=== PATIENT | female | born 1950 | race Caucasian/White ===

== ENCOUNTER 2016-10-16 11:27 | Emergency (ER) | payer MEDICARE ==
[~2016-10-16] VITALS: Ht 167.6 cm; Wt 120.0 kg
[~2016-10-16 11:27] MED LIST: ASA/BUT/CAFF OR; ECOTRIN325 MG PO; FISH OIL1000 M1 PO; FLEXERIL PO; FLUOXETINE20 M2 OR; KEFLEX500 M1 PO; LANTUS; LANTUS100 MG/ML SC; LASIX 20 MG TAB20 MG PO; LASIX20 MG PO; LISINOPRIL20 M1 PO; LORTAB 5 OR; LORTAB 7.5 OR; LORTAB5 OR; METFORMIN1000 MG PO; MICARDIS80 MG OR; NEURONTIN100 MG PO; NORCO1 TA1 PO; PRAVASTATIN40 MG PO; PROZAC20 MG PO; PROZAC40 MG PO; SIMVASTATIN40 MG OR; TRAMADOL HCL50 MG PO; ULTRAM50 M1 PO; VENLAFAXINE HCL75 M1; VENLAFAXINE HCL75 M1 PO; VICOPROFEN OR; XANAX0.5 MG PO; XANAX1 MG PO; ZOFRAN ODT4 MG SL
[2016-10-16 12:11] LABS: HEMATOCRIT 28.5 % (37.0-47.0); HEMOGLOBIN 9.3 g/dl (12.0-16.0); IMMATURE GRANULOCYTES 0.3 % (0.0-1.0); MEAN CELL VOLUME 82.6 fL CALC (80.0-100.0); MEAN CORPUSCULAR HGB CONC 32.6 g/L CALC (32.0-36.0); NEUT# 3.28 thou/uL (2.00-7.15); RED BLOOD COUNT 3.45 mill/uL (4.20-5.60); RED CELL DISTRI WIDTH 13.8 % (11.5-15.5)
[2016-10-16 12:23] LABS: ALBUMIN 3.1 g/dL (3.2-5.0); ALKALINE PHOSPHATASE 83 u/l (38-126); AMYLASE 37 u/l (30-110); ANION GAP 12 (6-22 (CALC)); BILIRUBIN, TOTAL 0.4 mg/dL (0.0-1.4); BUN 19 mg/dL (8-23); BUN/CREATININE RATIO 17 (12-20 (CALC)); CALCIUM 9.3 mg/dL (8.4-10.2); CARBON DIOXIDE 24 mmol/l (22-30); CHLORIDE 108 mmol/l (95-108); CREATININE 1.2 mg/dL (0.5-1.0); GFR 45 ML/MIN (>=60 (CALC)); GFR FOR AFR.AMER. 55 ML/MIN (>=60 (CALC)); GLUCOSE 155 mg/dL (82-115); LIPASE 110 u/l (23-300); POTASSIUM 4.4 mmol/l (3.5-5.1); SGOT/AST 55 u/l (9-36); SGPT/ALT 35 u/l (11-66); SODIUM 140 mmol/l (137-146); TOTAL PROTEIN 6.5 g/dL (6.3-8.2)
[2016-10-16 12:30] LABS: ACT PARTIAL THROMBO TIME 25.9 SECONDS (20.0-32.5); INTERNATIONAL NORMALIZED RATIO 1.1 RATIO (0.7-1.3); PROTHROMBIN TIME 11.6 SECONDS (9.0-12.5)
[2016-10-16 12:35] LABS: MYOGLOBIN 121 ng/mL (0 - 62)
[2016-10-16 13:17] LABS: URINE BILIRUBIN - DIPSTICK NEGATIVE (NEGATIVE); URINE BLOOD DIPSTICK NEGATIVE (NEGATIVE); URINE CLARITY CLEAR; URINE COLOR YELLOW; URINE GLUCOSE - DIPSTICK NEGATIVE (NEGATIVE); URINE KETONE NEGATIVE (NEGATIVE); URINE LEUK ESTERASE NEGATIVE (NEGATIVE); URINE NITRITE - DIPSTICK NEGATIVE (Negative); URINE PH 5.5 (4.5-8.0); URINE PROTEIN - DIPSTICK NEGATIVE (NEG-TRACE); URINE UROBILINOGEN - DIPSTICK 0.2 E.U./dL (0.2)
[2016-10-16 16:24] VITALS: BP 131/60
== END 2016-10-16 16:25 | disposition short-term general hospital (02) ==
LOC: ED 11:27
PROVIDERS: Emergency Medicine
DX: K92.2 Gastrointestinal hemorrhage, unspecified (principal); R10.32 Left lower quadrant pain; R10.31 Right lower quadrant pain; I10 Essential (primary) hypertension

== ENCOUNTER 2017-01-27 13:12 | Emergency (ER) | payer MEDICARE ==
[~2017-01-27] VITALS: Ht 165.1 cm; Wt 103.3 kg
[~2017-01-27 13:12] MED LIST changes: +AMITRIPTYLIN50 MG PO; +ASPIRIN LOW DOS81 MG PO; +CALCIUM + D600 MG PO; +CYANOCOBAL1000 MCG/M SC; +GABAPENTIN400 M2 PO; -LASIX 20 MG TAB20 MG PO; +LASIX 40 MG40 MG/TAB PO; +LISINOPRIL10 MG PO; -LISINOPRIL20 M1 PO; +LORTAB 1010 MG PO; +MECLIZINE25 MG PO; +METHIMAZOLE10 MG PO; +NOVOLOG FLEXPEN SC; +OMEPRAZOLE20 M2 PO; +PRAVASTATIN SOD20 MG PO; -PRAVASTATIN40 MG PO; +SYMBICORT1 AE1 IN; +TRAZODONE HCL100 MG PO; +TRESIBA FL100 UNIT/M SC; +VENLAFAXINE100 MG PO; +VICTOZA18 MG/3 ML SC; +VITAMIN C500 M6 PO
[2017-01-27 13:46] LABS: HEMOGLOBIN 10.7 g/dl (12.0-16.0); IMMATURE GRANULOCYTES 0.9 % (0.0-1.0); MEAN CELL VOLUME 83.1 fL CALC (80.0-100.0); MEAN CORPUSCULAR HGB 27.8 pG CALC (26.0-32.0); MEAN CORPUSCULAR HGB CONC 33.4 g/L CALC (32.0-36.0); NEUT# 3.6 thou/uL (2.00-7.15); RED BLOOD COUNT 3.85 mill/uL (4.20-5.60); RED CELL DISTRI WIDTH 16.9 % (11.5-15.5)
[2017-01-27 14:30] LABS: ALBUMIN 3.2 g/dL (3.2-5.0); ALKALINE PHOSPHATASE 95 u/l (38-126); ANION GAP 15 (6-22 (CALC)); BILIRUBIN, TOTAL 0.4 mg/dL (0.0-1.4); BUN 15 mg/dL (8-23); BUN/CREATININE RATIO 14 (12-20 (CALC)); CALCIUM 9.2 mg/dL (8.4-10.2); CARBON DIOXIDE 23 mmol/l (22-30); CHLORIDE 112 mmol/l (95-108); CREATININE 1.1 mg/dL (0.5-1.0); GFR 50 ML/MIN (>=60 (CALC)); GFR FOR AFR.AMER. > 60 ML/MIN (>=60 (CALC)); GLUCOSE 86 mg/dL (82-115); POTASSIUM 4.5 mmol/l (3.5-5.1); SGOT/AST 35 u/l (9-36); SGPT/ALT 24 u/l (11-66); SODIUM 144 mmol/l (137-146); TOTAL PROTEIN 6.6 g/dL (6.3-8.2)
[2017-01-27 14:42] LABS: MYOGLOBIN 45 ng/mL (0 - 62)
[2017-01-27 15:48] VITALS: BP 127/58
== END 2017-01-27 15:58 | disposition home or self-care (01) ==
LOC: ED 13:12
PROVIDERS: Emergency Medicine
DX: I95.1 Orthostatic hypotension (principal); I10 Essential (primary) hypertension; E11.9 Type 2 diabetes mellitus without complications; Z79.4 Long term (current) use of insulin; Z86.73 Personal history of transient ischemic attack (TIA), and cerebral infarction without residual deficits; R42 Dizziness and giddiness; R53.1 Weakness

== ENCOUNTER 2017-02-12 10:46 | Emergency (ER) | payer MEDICARE ==
[~2017-02-12] VITALS: Ht 165.1 cm; Wt 102.0 kg
[2017-02-12 15:15] VITALS: BP 111/63
== END 2017-02-12 15:15 | disposition home or self-care (01) ==
LOC: ED 10:46
DX: S00.93XA Contusion of unspecified part of head, initial encounter (principal); S20.212A Contusion of left front wall of thorax, initial encounter; S13.9XXA Sprain of joints and ligaments of unspecified parts of neck, initial encounter; S73.102A Unspecified sprain of left hip, initial encounter; S43.402A Unspecified sprain of left shoulder joint, initial encounter; W01.198A Fall on same level from slipping, tripping and stumbling with subsequent striking against other object, initial encounter; Y92.000 Kitchen of unspecified non-institutional (private) residence as the place of occurrence of the external cause; I10 Essential (primary) hypertension

== ENCOUNTER 2017-03-26 07:08 | Day surgery (SDC) | payer MEDICARE ==
[~2017-03-26] VITALS: Ht 165.1 cm; Wt 104.8 kg
[~2017-03-26 07:08] MED LIST changes: +ALPRAZOLAM1 MG PO; +GABAPENTIN400 MG PO; +METOPROLOL SUCC25 MG PO; +NOVOLOG100 UNIT/M; +PRAVASTATIN20 MG PO; +TRESIBA FL200 UNIT/M SC; +VICODIN HP1 TA1 PO; +WELLBUTRIN SR150 MG PO
[2017-03-26] MEDS ORDERED: NORCO1 TA1 PO (11:37)
[2017-03-26 12:06] VITALS: BP 103/56
== END 2017-03-26 12:28 | disposition home or self-care (01) ==
LOC: ORM 07:08
PROVIDERS: ATTEND Surgery
PROC: 0KBG0ZZ Excision of Left Trunk Muscle, Open Approach (ICD-10-PCS; principal; 2017-03-26)
DX: M79.89 Other specified soft tissue disorders (principal)

== ENCOUNTER 2017-04-04 12:19 | Emergency (ER) | payer MEDICARE ==
[~2017-04-04] VITALS: Ht 165.1 cm; Wt 106.3 kg
[2017-04-04 14:27] VITALS: BP 103/63
== END 2017-04-04 14:35 | disposition home or self-care (01) ==
LOC: ED 12:19
DX: S00.03XA Contusion of scalp, initial encounter (principal); S50.811A Abrasion of right forearm, initial encounter; W18.39XA Other fall on same level, initial encounter; Y93.89 Activity, other specified; Y92.003 Bedroom of unspecified non-institutional (private) residence as the place of occurrence of the external cause; I89.0 Lymphedema, not elsewhere classified; I10 Essential (primary) hypertension; I69.354 Hemiplegia and hemiparesis following cerebral infarction affecting left non-dominant side

== ENCOUNTER 2017-06-11 06:07 | Day surgery (SDC) | payer MEDICARE ==
[~2017-06-11] VITALS: Ht 165.1 cm; Wt 110.7 kg
[~2017-06-11 06:07] MED LIST changes: +CALCIUM600 M1 PO; +FLONASE AL50 MCG/AC1; +FUROSEMIDE40 MG PO; +NEXIUM40 M1 PO; +NOVOLO1 SC; +NOVOLOG FL100 UNIT/M SC
[2017-06-11 13:01] VITALS: BP 92/51
== END 2017-06-11 09:35 | disposition home or self-care (01) ==
LOC: ORM 06:07
PROVIDERS: ATTEND Surgery
PROC: 0JBJ0ZZ Excision of Right Hand Subcutaneous Tissue and Fascia, Open Approach (ICD-10-PCS; principal; 2017-06-11)
DX: C44.622 Squamous cell carcinoma of skin of right upper limb, including shoulder (principal); Z87.891 Personal history of nicotine dependence

== ENCOUNTER → 2018-06-30 | Outpatient (REF) | payer MEDICARE | END | disposition home or self-care (01) | LOC: LABSPEC 15:31 | PROVIDERS: ATTEND Surgery | DX: L02.91 Cutaneous abscess, unspecified (principal); L97.921 Non-pressure chronic ulcer of unspecified part of left lower leg limited to breakdown of skin; S80.822A Blister (nonthermal), left lower leg, initial encounter; L03.116 Cellulitis of left lower limb; A49.02 Methicillin resistant Staphylococcus aureus infection, unspecified site; I89.0 Lymphedema, not elsewhere classified; E11.40 Type 2 diabetes mellitus with diabetic neuropathy, unspecified; E11.65 Type 2 diabetes mellitus with hyperglycemia; E66.9 Obesity, unspecified; F17.218 Nicotine dependence, cigarettes, with other nicotine-induced disorders | CPT/HCPCS: A6454 ==

== ENCOUNTER 2018-07-21 11:44 | Emergency (ER) | payer MEDICARE ==
[~2018-07-21] VITALS: Ht 165.1 cm; Wt 114.0 kg
[2018-07-21 13:16] LABS: HEMATOCRIT 36.7 % (37.0-47.0); HEMOGLOBIN 11.8 g/dl (12.0-16.0); IMMATURE GRANULOCYTES 1.4 % (0.0-5.0); MEAN CELL VOLUME 91.1 fL CALC (80.0-100.0); MEAN CORPUSCULAR HGB 29.3 pG CALC (26.0-32.0); MEAN CORPUSCULAR HGB CONC 32.2 g/L CALC (32.0-36.0); NEUT# 3.59 thou/uL (2.00-7.15); RED BLOOD COUNT 4.03 mill/uL (4.20-5.60)
[2018-07-21 13:23] LABS: ALBUMIN 3.7 g/dL (3.2-5.0); BILIRUBIN, TOTAL 0.4 mg/dL (0.0-1.4); CREATININE 1.6 mg/dL (0.5-1.0); POTASSIUM 4.3 mmol/l (3.5-5.1); TOTAL PROTEIN 7.1 g/dL (6.3-8.2)
[2018-07-21 14:02] LABS: URINE BILIRUBIN - DIPSTICK NEGATIVE (NEGATIVE); URINE BLOOD DIPSTICK NEGATIVE (NEGATIVE); URINE COLOR YELLOW; URINE GLUCOSE - DIPSTICK NEGATIVE (NEGATIVE); URINE KETONE NEGATIVE (NEGATIVE); URINE LEUK ESTERASE NEGATIVE (NEGATIVE); URINE NITRITE - DIPSTICK NEGATIVE (Negative); URINE PROTEIN - DIPSTICK NEGATIVE (NEG-TRACE)
[2018-07-21] MEDS ORDERED: ANTIVERT PO (15:42)
[2018-07-21 15:49] VITALS: BP 115/69
== END 2018-07-21 15:57 | disposition home or self-care (01) ==
LOC: ED 11:44
DX: R42 Dizziness and giddiness (principal); F17.210 Nicotine dependence, cigarettes, uncomplicated; E11.9 Type 2 diabetes mellitus without complications; Z79.4 Long term (current) use of insulin; I10 Essential (primary) hypertension

== ENCOUNTER 2019-12-01 09:07 | Observation (INO) | payer MEDICARE ==
[~2019-12-01] VITALS: Ht 165.1 cm; Wt 118.6 kg
[~2019-12-01 09:07] MED LIST changes: +ANTIVERT PO; +EQL OMEPRAZOLE20 MG PO; -NEXIUM40 M1 PO
--- NOTE | 2019-12-01 09:15 | NUR ---
PT TO RM 13 VIA W/C. B/S TRIAGE COMPLETED.
--- NOTE | 2019-12-01 09:54 | NUR ---
TO RADIOLOGY IN STABLE CONDITION VIA WHEELCHAIR.
[2019-12-01 10:08] LABS: URINE BILIRUBIN - DIPSTICK NEGATIVE (NEGATIVE); URINE BLOOD DIPSTICK NEGATIVE (NEGATIVE); URINE COLOR YELLOW; URINE GLUCOSE - DIPSTICK >=1000 mg/dL (NEGATIVE); URINE KETONE NEGATIVE (NEGATIVE); URINE LEUK ESTERASE NEGATIVE (NEGATIVE); URINE NITRITE - DIPSTICK NEGATIVE (Negative); URINE PROTEIN - DIPSTICK NEGATIVE (NEG-TRACE); URINE UROBILINOGEN - DIPSTICK 0.2 E.U./dL (0.2)
[2019-12-01 10:09] LABS: HEMATOCRIT 33.7 % (37.0-47.0); IMMATURE GRANULOCYTES 0.5 % (0.0-5.0); MEAN CELL VOLUME 86.4 fL CALC (80.0-100.0); MEAN CORPUSCULAR HGB 27.4 pG CALC (26.0-32.0); MEAN CORPUSCULAR HGB CONC 31.8 g/dL CAL (32.0-36.0); NEUT# 7.03 thou/uL (2.00-7.15); RED BLOOD COUNT 3.9 mill/uL (4.20-5.60)
[2019-12-01 10:10] LABS: HEMOGLOBIN 10.7 g/dl (12.0-16.0)
--- NOTE | 2019-12-01 10:13 | NUR ---
MD AT BEDSIDE TO DISCUSS RESULTS AND POC.
[2019-12-01 10:28] LABS: ALBUMIN 3.3 g/dL (3.2-5.0); ALKALINE PHOSPHATASE 113 u/l (38-126); ANION GAP 11 (6-22 (CALC)); BILIRUBIN, TOTAL 0.6 mg/dL (0.0-1.4); BUN 12 mg/dL (8-23); BUN/CREATININE RATIO 11 (12-20 (CALC)); CARBON DIOXIDE 22 mmol/l (22-30); CHLORIDE 101 mmol/l (95-108); GFR 55 ML/MIN (>=60 (CALC)); GFR FOR AFR.AMER. > 60 ML/MIN (>=60 (CALC)); POTASSIUM 3.9 mmol/l (3.5-5.1); SGOT/AST 31 u/l (9-36); SODIUM 130 mmol/l (137-146); TOTAL PROTEIN 6.6 g/dL (6.3-8.2)
[2019-12-01] MEDS ORDERED: TRULICITY0.75 MG/0. SC (10:30)
[2019-12-01] MEDS ORDERED: AMITRIPTYLIN25 MG PO (10:34)
[2019-12-01] MEDS ORDERED: ASPIRIN81 MG PO (10:37)
--- NOTE | 2019-12-01 11:00 | NUR ---
RESTING ON STRETCHER WITH HOB ELEVATED. AT BEDSIDE. CALL LIGHT WITHIN REACH. DENIES NEEDS AT THIS TIME.
--- NOTE | 2019-12-01 11:16 | NUR ---
COVID SWAB OBTAINED, ISOLATION PRECAUTIONS INITIATED.
[2019-12-01] MEDS ORDERED: LEVEMIR100 UNIT/M SC (12:08)
--- NOTE | 2019-12-01 12:25 | NUR ---
ASSISTED TO BATHROOM USING PERSONAL WALKER WITH STEADY GAIT.
--- NOTE | 2019-12-01 12:45 | NUR ---
medicated for headache and rt knee pain 09/28. pt sitting up in wc waiting for transfer upstairs. pt requested to sit in chair declined offer to return to bed to wait.
--- NOTE | 2019-12-01 13:56 | NUR ---
REPORT GIVEN TO [facility].
--- NOTE | 2019-12-01 14:00 | NUR ---
TO ROOM 267 IN STABLE CONDITION VIA WHEELCHAIR.
--- NOTE | 2019-12-01 14:07 | NUR ---
REPORT RECIEVED FROM HOWARD HARTMANN. PT ARRIVED TO [facility] ROOM 167 IN STABLE CONDITION VIA WHEELCHAIR ACCOMPAINED BY HOWARD HARTMANN . PT AMBULATED TO BED FROM WHEELCHAIR IN STABLE CONDITION. INTRODUECD SELF TO PT AND DISCUSSED POC. ASSESSMENT AND VITALS COMPLETED AT THIS TIME.RESPIRATIONS ARE EVEN AND UNLABORED WITH NO SIGNS OF DISTRESS. LUNG SOUNDS ARE CLEAR. HEART RHYTHM IS NORMAL WITH TELE IN PLACE. BOWEL SOUNDS ARE ACTIVE IN ALL QUADRANTS WITH NO TENDERNESS, LAST REPORTED BM 12/01/19. RADIAL AND RIGHT PEDAL PULSES ARE STRONG WITH NORMAL CAPILLARY REFILL. UNABLE TO PALPATE LEFT PEDAL PULSE DUE TO DRESSING FROM LYMPHADEMA. PT INFORMS WRITTER THAT SHE GOES TO WOUND CARE FOR TREATMENT. #20 IN LAC FLUSHED, SITE APPEARS HEALTHY AND PATENT. PT COMPLAINS OF 10/10 PAIN IN RIGHT KNEE, ANIKET, ANRP TO BE NOTIFIED OF PT PAIN SCALE. PT PRESENTS WITH RIGHT KNEE REDDNED AND A ABRASION TO LEFT ELBOW. PT INFORMS WRITTER THAT SHE HAS BEEN HAVING FALLS AT HOME RECENTLY, FALL RISK BAND APPLIED WITH ALLERGY BAND. PT DENIES OF ANY OTHER PAIN OR DISCOMFORTS AT THSI TIME. ALL SAFETY PRECAUTIONS ARE IN PLACE WITH CALL LIGHT IN REACH. PT ORIENTED TO ROOM AND CALL SYSTEM. WILL CONTINUE TO MONITOR
[2019-12-01 14:10] VITALS: BP 121/81
--- NOTE | 2019-12-01 16:06 | NUR ---
PT COMPAINS OF 10/10 PAIN IN RIGHT KNEE. TORADOL TO BE ADMINISTERED. RESPIRATIONS ARE EVEN AND UNLABORED WITH NO SIGNS OF DISTRESS. ALL SAFETY PRECAUTIONS ARE IN PLACE WITH CALL LIGHT IN [facility].W ILLC OTNINUE TO MONITOR
[2019-12-01] MEDS ORDERED: LEVOTHYROXIN112 MC1 PO (16:47)
[2019-12-01] MEDS ORDERED: BEVESPI AEROSPH1 AER IN (17:21)
[2019-12-01] MEDS ORDERED: TOPROL XL25 M1 PO (17:25)
[2019-12-01] MEDS ORDERED: LORATADINE10 M1 PO (17:25)
[2019-12-01 17:26] VITALS: BP 113/73
--- NOTE | 2019-12-01 17:28 | NUR ---
REASSESSMEN TOF PAIN AT THIS TIME. RESULTIN GIN 07/29. RESPIRTAIOONS ARE EVEN AND UNABORED WITH NO SIGNS OF DISTRESS. ALL SAFETY PRECAUTIONS REMAIN IN PLACE WITH CALL LIGHT IN REACH.W ILL COTNINUE TO MONITOR
[2019-12-01 17:31] VITALS: BP 125/76
[2019-12-01 17:36] VITALS: BP 89/60
--- NOTE | 2019-12-01 17:38 | NUR ---
ORTHOSTATICS COMPLETED AT THIS TIME. LAYING 113/73 HR 81. SITTING 125/76, HR 77. STANDING 89/60, HR 84. PT RESTING IN SEMI FOWLERS POSITION UPON LEAVING ROOM. REPSIRATIONS ARE EVEN AND UNLABORED. PT DENIES ANY LIGHT HEADEDNESS. ALL SAFETY PRECAUTIONS ARE IN PLACE WITH CALL LIGHT IN [facility]. WILL CONTINUE TO MONITOR
[2019-12-01 18:52] VITALS: BP 122/66
--- NOTE | 2019-12-01 20:44 | NUR ---
ASSESSMENT COMPLETED. NO DISTRESS NOTED; DENIES NEEDS/PAIN. EDUCATED ON POC AND INSTRUCTED TO CALL FOR ANY OOB NEEDS. SCHED MEDS GIVEN. IV SITE PATENT AND SL. DRESSING WITH SLEEVE IN PLACE TO LLE WITH EDEMA NOTED; UNABLE TO INSPECT SKIN AT THIS TIME UNDER DRESSING(PER PT. SHE HAS OPEN AREAS UNDERNEATH). ENCORUAGED TO CALL FOR ANY NEEDS. CALL LIGHT IS IN REACH.
[2019-12-02 00:01] VITALS: BP 127/70
--- NOTE | 2019-12-02 00:29 | NUR ---
PT. C/O GRECO AND NAUSEA; MEDICATED WITH ORDERED PRN TORADOL AND ZOFRAN; WILL REASSESS. DENIES FURTHER NEEDS.
[2019-12-02 04:27] VITALS: BP 97/63
[2019-12-02 06:08] LABS: IMMATURE GRANULOCYTES 0.4 % (0.0-5.0); MEAN CELL VOLUME 87.9 fL CALC (80.0-100.0); MEAN CORPUSCULAR HGB 27.5 pG CALC (26.0-32.0); MEAN CORPUSCULAR HGB CONC 31.3 g/dL CAL (32.0-36.0); NEUT# 4.2 thou/uL (2.00-7.15); RED BLOOD COUNT 3.64 mill/uL (4.20-5.60); RED CELL DISTRI WIDTH 14.8 % (11.5-15.5)
[2019-12-02 06:35] LABS: ALBUMIN 2.7 g/dL (3.2-5.0); ALKALINE PHOSPHATASE 87 u/l (38-126); ANION GAP 9 (6-22 (CALC)); BILIRUBIN, TOTAL 0.5 mg/dL (0.0-1.4); BUN 16 mg/dL (8-23); BUN/CREATININE RATIO 16 (12-20 (CALC)); CARBON DIOXIDE 24 mmol/l (22-30); CHLORIDE 103 mmol/l (95-108); GFR 55 ML/MIN (>=60 (CALC)); GFR FOR AFR.AMER. > 60 ML/MIN (>=60 (CALC)); MAGNESIUM 1.8 mg/dL (1.6-2.3); POTASSIUM 3.9 mmol/l (3.5-5.1); SGOT/AST 28 u/l (9-36); SODIUM 132 mmol/l (137-146); TOTAL PROTEIN 5.6 g/dL (6.3-8.2)
--- NOTE | 2019-12-02 07:34 | NUR ---
PT note Patient is screened for PT intervention and it is felt she would benefit from therapy evaluation
[2019-12-02 07:49] VITALS: BP 126/73
--- NOTE | 2019-12-02 07:53 | NUR ---
RECIEVED REPORT FROM HOWARD LOPEZ . PT RESTING IN BED UPON ENTERING ROOM.INTRODUCED SELF TO PT AND DISCUSSED POC. ASSESSMENT ANDVITALS COMPLETED AT THIS TIME. RESPIRATIONS ARE EVEN AND UNALBORED WITH NO SIGNS OF DISTRESS. LUNG SOUNDS ARE CLEAR. HEART RHYTHM IS NORMAL WITH TELE IN PLACE. BOWEL SOUNDS ARE ACTIVE IN ALL QUADRANTS, LAST REPORTED BM 12/01/19. RADIAL AND RIGHT PEDAL PULSES ARE STRONG WITH NORMAL CAPILLARY REFILL.#20G IN RAC FLUSHED, SITE APPEARS HEALTHY AND PATENT. RIGHT KNEE APPEARS TO BE SLIGHTLY SWOLLEN AND REDDED. 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 ALL SAFETY PRECAUTIONS ARE IN PLACE WITH CALL LIIGHT IN REACH. WILL COTNINUE TO MONITOR
--- NOTE | 2019-12-02 11:58 | NUR ---
PT SITTING UP IN RECYLINER WATCHING TV. RESPIRATIONS ARE EVEN AND UNLABORED. PT DENIES ANY PAIN OR DISCOMFORTS. IV ANTIBIOTICS RUNNING WITH EASE. ALL SAFETY PRECAUTIONS ARE IN PLACE WITH CALL LIGHT IN REACH. WILL CONTINUE TO MONITOR
[2019-12-02 12:00] VITALS: BP 100/44
[2019-12-02 16:00] VITALS: BP 109/49
--- NOTE | 2019-12-02 16:37 | NUR ---
PT COMPLAINS OF 7/10 HEADACHE AND NECK PAIN, TORADOL ADMINISTERED. RESPIRATIONS ARE EVEN AND UNALBROED WIHT NO SIGNS FO DSITRESS. ALL SAFETY PRECAUTIONS ARE IN PLACE WITH CLAL LIGHT IN REACH. WILL CONTINUW TO MONITOR
[2019-12-02 19:00] VITALS: BP 105/68
--- NOTE | 2019-12-02 19:45 | NUR ---
ASSESSMENT COMPLETED. PT. SITTING UP IN CHAIR; DENIES NEEDS/PAIN. RIGHT KNEE REMAINS SWOLLEN; ENCOURAGED TO CALL FOR ANY NEEDS. CALL LIGHT IS IN REACH. WILL CONTINUE TO MONITOR.
--- NOTE | 2019-12-02 23:30 | NUR ---
RESTING IN BED WITH NO DISTRESS NOTED;WILL CONTINUE TO MONITOR.
[2019-12-03] VITALS (7 sets, daily range): BP systolic 109–132; BP diastolic 29–66
--- NOTE | 2019-12-03 03:00 | NUR ---
PT. RESTING IN BED WITH EYES CLOSED; RESP. EVEN AND UNLABORED. CALL LIGHT IS IN REACH.
--- NOTE | 2019-12-03 07:38 | NUR ---
RECIEVED REPORT FROM KIMBERLY. PT SITTING UP IN RECYLINER UPON ENTERINF ROOM.INTRODUCED SELF TO PT AND IDSCUSSED POC. ASESSMENT AND VITALS COMPLETED AT THIS TIME. RESPIRATIONS ARE EVEN AND UNLABORED WITH NO SIGNS OF DISTRESS. LUNG SOUNDS ARE CLEAR. HEART RHYTHM IS NORMAL WITH TELE IN PLACE. BOWEL SOUNDS ARE HYPOACTIVE, LAST REPORTED BM 12/02/19. RADIAL PULSES ARE STRONG WITH NORMAL CAPILLARY REFILL. PEDAL PULSES ARE WEAK, PT PRESENTS WITH 2+EDEMA EDEMA. DRESSING IN LEFT FOOT TAHT PT STATES SHE GOES TO WOUND CARE ONCE A WEEK FOR. NO DRESSINGS ORDERS. PT DENIES ANY PAIN OR DISCOMFORTS AT THSI TIME. ALL SAFTEY PERCAUTIONS ARE IN PLACE WITH CALL LIGHT IN REACH. WILL CONTINUE TO MONITOR
--- NOTE | 2019-12-03 10:26 | NUR ---
ORTHOSTATIC BP COMPLETED AT THIS TIME RESULTING IN 109/29 IN SUPINE. 132/60 SITTING. 116/61 STANDING. PT ASSISTED BACK TO BED. RESPIRATIONS ARE EVEN AND UNLABORED WITH NO SIGNS OF DISTERSS. ALL SAFTEY PRECAUTIONS IN PLACE WIHT CALL LIGHT IN [facility] OTNINUE TO MONITOR
[2019-12-03] MEDS ORDERED: Levaquin PO (11:28)
--- NOTE | 2019-12-03 12:44 | NUR ---
PT RESTING IN RECYLINER UPON ENTERING ROOM. INFORMED PT THAT DISCHARGE INSTRUCTIONS ARE ORDERED. PT VERBILZED UNDERSTANDING. RESPIRATIONS ARE EVEN AND UNLABORED WITH NO SIGNS OF DISTRESS. ALL SAFETY PRECAUTIONS ARE IN PLACE WITH CALL LIGHT IN REACH. WILL CONTINUE TO MONITOR
--- NOTE | 2019-12-03 14:32 | NUR ---
PT EDUCTAED ON DISCHARGE INSTRUCTIONS AND LEVAQUIN. PT VERBALIZED UNDERSTANDING. AWAITING FOR TRANSPORTATION AT THIS TIME. ALL SAFETY PRECAUITONS ARE IN PLACE WITH CALL LIGHT IN REACH
--- NOTE | 2019-12-03 14:57 | NUR ---
Discharge instructions given. Patient verbalizes understanding of same. Discharged in stable condition via Wheelchair to Home with family. All belongings sent with pt. PT LEFT VIA WHEELCHAIR ACCOMPAINED BY WRITTER. PT LEFT WITH ALL DISCHARGE INSTRUCTIONS AND BELONGINGS
--- NOTE | 2019-12-03 15:37 | NUR ---
Attempted to see patient. SHe was discharging home and will follow up with ANGELI
== END 2019-12-03 15:00 | disposition home or self-care (01) ==
LOC: ED 09:07 → ED-I 09:38 → ED 11:37 → ED-I 11:38 → MS2 11:38
PROVIDERS: Family Medicine; Nurse Practitioner; ADMIT Internal Medicine; ATTEND Internal Medicine
DX: I95.1 Orthostatic hypotension (principal); S80.01XA Contusion of right knee, initial encounter; J18.9 Pneumonia, unspecified organism; I11.0 Hypertensive heart disease with heart failure; I50.9 Heart failure, unspecified; E11.40 Type 2 diabetes mellitus with diabetic neuropathy, unspecified; E11.65 Type 2 diabetes mellitus with hyperglycemia; E78.5 Hyperlipidemia, unspecified; F41.9 Anxiety disorder, unspecified; I89.0 Lymphedema, not elsewhere classified; E03.9 Hypothyroidism, unspecified; K21.9 Gastro-esophageal reflux disease without esophagitis; G47.00 Insomnia, unspecified; F17.200 Nicotine dependence, unspecified, uncomplicated; W19.XXXA Unspecified fall, initial encounter; Z79.4 Long term (current) use of insulin; Z20.828 Contact with and (suspected) exposure to other viral communicable diseases
CPT/HCPCS: G0378; J1956

== ENCOUNTER 2019-12-14 11:39 | Emergency (ER) | payer MEDICARE ==
[~2019-12-14] VITALS: Ht 167.6 cm; Wt 117.3 kg
[~2019-12-14 11:39] MED LIST changes: +AMITRIPTYLIN25 MG PO; +ASPIRIN81 MG PO; +BEVESPI AEROSPH1 AER IN; +LEVEMIR100 UNIT/M SC; +LEVOTHYROXIN112 MC1 PO; +LORATADINE10 M1 PO; +Levaquin PO; +TOPROL XL25 M1 PO; +TRULICITY0.75 MG/0. SC
[2019-12-14] MEDS ORDERED: DOXYCYCL HYC100 MG PO (11:58)
[2019-12-14] MEDS ORDERED: TRAMADOL HYDROC50 M1 PO (13:31)
[2019-12-14 13:48] VITALS: BP 123/60
== END 2019-12-14 13:49 | disposition home or self-care (01) ==
LOC: ED 11:39
DX: M25.512 Pain in left shoulder (principal); E11.9 Type 2 diabetes mellitus without complications; J44.9 Chronic obstructive pulmonary disease, unspecified; W01.0XXA Fall on same level from slipping, tripping and stumbling without subsequent striking against object, initial encounter; Y92.238 Other place in hospital as the place of occurrence of the external cause; Z79.4 Long term (current) use of insulin; Z86.73 Personal history of transient ischemic attack (TIA), and cerebral infarction without residual deficits; J18.9 Pneumonia, unspecified organism; R42 Dizziness and giddiness

== ENCOUNTER 2020-03-08 08:55 | Day surgery (SDC) | payer MEDICARE ==
[~2020-03-08 08:55] MED LIST changes: +DOXYCYCL HYC100 MG PO; +TRAMADOL HYDROC50 M1 PO; +ZOFRAN4 MG/TAB PO
[2020-03-08 12:30] VITALS: BP 108/60
== END 2020-03-08 11:45 | disposition home or self-care (01) ==
LOC: ORM 08:55
PROVIDERS: ATTEND Surgery
PROC: 0HBEXZZ Excision of Left Lower Arm Skin, External Approach (ICD-10-PCS; principal; 2020-03-08)
DX: C44.629 Squamous cell carcinoma of skin of left upper limb, including shoulder (principal); Z87.891 Personal history of nicotine dependence; Z20.828 Contact with and (suspected) exposure to other viral communicable diseases